=== PATIENT | male | born 1965 | race Caucasian/White ===

== ENCOUNTER 2022-12-14 13:05 | Emergency (ER) | payer OTHER ==
[2022-12-14 14:35] LABS: #Basophils 0.1 thou/uL (0.0-0.2); #Eosinphils 0.3 thou/uL (0.0-0.7); #Monocytes 0.8 thou/uL (0.11-0.59); #Neutrophils 6.9 thou/uL (1.40-6.50); %Basophils 0.7 % (0.0-1.0); %Eosinophils 3.1 % (0.0-10.0); %Lymphocytes 13.7 % (21.0-51.0); %Monocytes 8.6 % (0.0-10.0); %Neutrophils 73.5 % (42.0-75.0); Hematocrit 41.4 % (42.0-52.0); Mean Corpuscular HGB CONC 33.8 g/dL (32.0-36.0); Mean Corpuscular Volume 91.8 fl (78.0-98.0); Mean Platelet Volume 10.1 fL (7.4-10.4); Platelet Count 115 10x3/uL (130-400); RBC Distribution Width 12.8 % (11.5-14.5); Red Blood Cell (RBC) Count 4.51 mill/uL (4.70-6.10); White Blood Cell (WBC) Count 9.4 10x3/uL (4.8-10.8)
[2022-12-14 14:53] LABS: ALT (SGPT) 12 U/L (8-55); AST (SGOT) 15 U/L (5-34); Albumin 4.3 g/dL (3.5-5.0); Alkaline Phosphatase 75 U/L (40-110); Anion Gap 15 mmol/L (10-20); BUN (Urea Nitrogen) 10 mg/dL (8.4-25.7); Bilirubin, Total 0.9 mg/dL (0.2-1.2); Calc. Creatinine Clearance 0 mL/min (70-130); Calcium 9.3 mg/dL (7.8-10.44); Carbon Dioxide 21 mmol/L (22-29); Chloride 106 mmol/L (98-107); Estimated GFR 97; Globulin 3.6 g/dL (2.4-3.5); Glucose 124 mg/dL (70-105); Potassium 3.7 mmol/L (3.5-5.1); Protein, Total 7.9 g/dL (6.0-8.3); Sodium 138 mmol/L (136-145)
[2022-12-14] MEDS ORDERED: Iopamidol-370 76% 500 ML MDV (1 ML CHARGE) ONE (15:55)
[2022-12-14] MEDS ORDERED: Senokot S 8.6-50 MG TAB PO PRN (16:25)
[2022-12-14] MEDS ORDERED: Bisacodyl 10 MG SUPP PR PRN (16:25)
[2022-12-14] MEDS ORDERED: Acetaminophen 325 MG TAB PO PRN (16:25)
[2022-12-14] MEDS ORDERED: Bisacodyl 5 MG TAB PO PRN (16:25)
[2022-12-14] MEDS ORDERED: Heparin 10,000 UNITS/ 10 ML VIAL SLOW IVP SCH (16:30)
[2022-12-14] MEDS ORDERED: Heparin 25,000 units/D5W 500 ML IVPB SCH (16:30)
[2022-12-14] MEDS ORDERED: Heparin 10,000 UNITS/ 10 ML VIAL ONE (16:40)
[2022-12-14] MEDS ORDERED: Heparin 25,000 units/D5W 500 ML ONE (16:40)
[2022-12-14] MEDS ORDERED: Morphine 4 MG/ML VIAL ONE (17:09)
[2022-12-14] MEDS ORDERED: Ondansetron PF 4 MG/2 ML Vial ONE (17:09)
[2022-12-14] MEDS ORDERED: Morphine 2 MG/ML VIAL SLOW IVP PRN (17:14)
[2022-12-14] MEDS ORDERED: Sodium Chloride 0.9% 1,000 ML IV SCH (17:45)
[2022-12-14 18:38] LABS: Platelet Count 108 10x3/uL (130-400)
[2022-12-14 19:06] LABS: PTT Greater than 250.0 sec (22.9-36.1)
[2022-12-14 19:09] LABS: Troponin I 0.147 ng/mL (< 0.028)
[2022-12-14 21:09] LABS: Troponin I 0.173 ng/mL (< 0.028)
== END 2022-12-14 21:44 | disposition short-term general hospital (02) ==
LOC: ERS 13:05 → EEVIPCON 13:05 → SUATTDRO 13:05 → ERS 21:44
PROVIDERS: ADMIT Family Medicine; ATTEND Family Medicine
DX: I21.4 Non-ST elevation (NSTEMI) myocardial infarction (principal); I82.402 Acute embolism and thrombosis of unspecified deep veins of left lower extremity; I26.99 Other pulmonary embolism without acute cor pulmonale; Z87.891 Personal history of nicotine dependence
CPT/HCPCS: 36415; 71275; 80053; 83880; 84484; 85025; 85730; 93005; 96374; 96375; J1644; J2270; J2405; Q9967